=== PATIENT | male | born 1965 | race Hispanic/Latino ===

== ENCOUNTER → 2022-07-14 | Day surgery (SDC) | payer BC ==
[~2022-07-14] MED LIST: CEFTRIAXONE 1 GM VIAL ONE; DEXAMETHASONE SOD PHOS INJ 4 MG/ML SDV ONE; EPHEDRINE SULFATE INJ 50 MG/ML VIAL ONE; IOPAMIDOL 370 MG/ML 100 ML INFUS..BTL INJ ONE; LIDOCAINE HCL 2% LOCAL INJ 5 ML SDV VIAL INJ ONE; ONDANSETRON HCL INJ 2MG/ML 2ML 2 MG/ML VIAL ONE; POVIDONE IODINE 0.05% 0.05 % ML PO ONE; PROPOFOL IV EMULSION 10 MG/ML 20 ML VIAL ONE; SEVOFLURANE INHAL SOLN 250 ML PEN BTL ONE
[2022-07-14 10:00] VITALS: BP 136/85
== END | disposition home or self-care (01) ==
LOC: OR 05:50
PROVIDERS: ATTEND Urology
DX: N20.1 Calculus of ureter (principal); N13.30 Unspecified hydronephrosis; N39.0 Urinary tract infection, site not specified; D38.1 Neoplasm of uncertain behavior of trachea, bronchus and lung; I10 Essential (primary) hypertension; R00.1 Bradycardia, unspecified; Z80.52 Family history of malignant neoplasm of bladder
CPT/HCPCS: 50590; 74018; 93005; J0696; J1100; J2001; J2405; Q9967